=== PATIENT | female | born 2000 | race American Indian/Alaskan Native ===

== ENCOUNTER 2022-01-11 15:35 | Emergency (ER) | payer OTHER ==
[2022-01-11] MEDS ORDERED: levETIRAcetam 1000 MG/NS 0.75% 1,000 MG/100 ML BAG IV ONE (16:53)
[2022-01-11] MEDS ORDERED: BUTALB/ACETAMINOPHEN/CAFFEINE TAB PO ONE (17:05)
--- NOTE | 2022-01-11 17:07 | Emergency Department Report ---
HPI - General Time Seen by Provider: 01/11/22 16:36 - HPI HPI: Room 36 Patient is a 21-year-old female present with a chief complaint of possible seizure. According to bystanders at [facility] the patient stood up began shaking and fell to the ground injuring her head. EMS was called and transported patient to the ED. Patient states she remembers sitting down and drinking some sweet tea but then had to put her head down because she began to feel weird. Patient states feeling weird includes her respiratory rate decreasing and feeling dizzy and tired. Patient is amnestic to the event. Patient states she has had 2 other similar episodes in the past the first occurring in 2019. The patient states she was doing someone's hair and then asked them to get her some water because she was not feeling well and she lost consciousness but awakened prior to that person returning to the room. Patient states she had a second episode November 2020 when she again stood up and began feeling weird. The patient states after closing her door she awakened on the floor and this event was not witnessed. The patient now complains of left shoulder pain and a headache. The patient admits she has been incontinent of bladder for each of the above episodes ED Past Medical Hx - Past Medical History Additional medical history: ASD/VSD, right ventricle hypoplasia, tricuspid atresia all surgically repaired - Surgical History Hx Open Heart Surgery: Yes (Correction of ASD/VSD, right ventricle hypoplasia, tricuspid atresia) Hx Appendectomy: Yes - Family History Family history: no significant - Social History Smoking Status: Never Smoker Substance Use Type: Alcohol (Occasional), Marijuana - Medications Home Medications: Home Medications Medication Instructions Recorded Confirmed Last Taken Type Butalb/Acetamin/Caff 50-325-40 2 tab PO Q8HR PRN #10 tablet 01/11/22 Unknown Rx [Fioricet 50-325-40] levETIRAcetam [Keppra TAB] 500 mg PO BID #60 tablet 01/11/22 Unknown Rx ED Review of Systems ROS: Stated complaint: FALL/HEAD PAIN Other details as noted in HPI Constitutional: no symptoms reported Eyes: denies: eye pain ENT: denies: throat pain Respiratory: no symptoms reported Cardiovascular: denies: chest pain Endocrine: no symptoms reported Gastrointestinal: denies: abdominal pain Genitourinary: denies: dysuria Musculoskeletal: arthralgia. denies: back pain Neurological: headache Physical Exam - Physical Exam Vital Signs: Vital Signs 01/11/22 16:19 Pulse Rate 77 Respiratory 16 Rate Blood Pressure 111/74 [Right] O2 Sat by Pulse 98 Oximetry Physical Exam: GENERAL: The patient is well-developed well-nourished female lying on stretcher with head bandaged not appearing to be in acute distress. [] HEENT: Normocephalic. Extraocular motions are intact. Patient has moist mucous membranes. NECK: Supple. No axial tenderness to palpation CHEST/LUNGS: Clear to auscultation. There is no respiratory distress noted. HEART/CARDIOVASCULAR: Regular. There is no tachycardia. There is no gallop rub or murmur. ABDOMEN: Abdomen is soft, nontender. Patient has normal bowel sounds. There is no abdominal distention. SKIN: There is no rash. There is no edema. There is no diaphoresis. NEURO: The patient is awake, alert, and oriented. The patient is cooperative. The patient has no focal neurologic deficits. The patient has normal speech. Cranial nerves II through XII grossly intact. GCS 15 MUSCULOSKELETAL: There is no evidence of acute injury. ED Course Vital Signs 01/11/22 16:19 Pulse Rate 77 Respiratory 16 Rate Blood Pressure 111/74 [Right] O2 Sat by Pulse 98 Oximetry - Laceration /Wound Repair Left Head Wound Location: head Wound Length (cm): 3 Wound's Depth, Shape: linear Wound Explored: clean Irrigated w/ Saline (ccs): 400 Betadine Prep?: Yes Anesthesia: 1% Lidocaine Volume Anesthetic (ccs): 6 Number of Sutures: 4 ([place]) Sterile Dressing Applied?: Yes ED Medical Decision Making - Lab Data Result diagrams: 01/11/22 17:48 01/11/22 17:48 Laboratory Tests 01/11/22 01/11/22 01/11/22 17:48 17:48 17:48 WBC 7.7 RBC 4.79 Hgb 14.1 Hct 43.3 H MCV 91 MCH 30 MCHC 33 RDW 13.6 Plt Count 112 L Lymph % (Auto) 12.2 L [place] % (Auto) 5.0 Eos % (Auto) 0.0 Baso % (Auto) 0.6 Lymph # (Auto) 0.9 L [place] # (Auto) 0.4 Eos # (Auto) 0.0 Baso # (Auto) 0.0 Seg Neutrophils % 82.2 H Seg Neutrophils # 6.4 Sodium 141 Potassium 3.8 Chloride 105.1 Carbon Dioxide 23 Anion Gap 17 BUN 11 Creatinine 0.8 Estimated GFR > 60 BUN/Creatinine Ratio 14 Glucose 94 Calcium 9.5 Magnesium 1.70 HCG, Qual Negative - Radiology Data Radiology results: report reviewed (CT head, left shoulder x-ray), image reviewed (CT head, left shoulder x-ray) interpreted by me: Left shoulder x-ray-no acute fracture, no dislocation [address] [address] Cat Scan Report Signed Patient: DIDIER RODRÍGUEZ MR#: [id number] 9 : 2000 Acct:[id number] Age/Sex: 21 / F ADM Date: 01/11/22 Loc: ED Attending Dr: Ordering Physician: JOSE DONNELLY MD Date of Service: 01/11/22 Procedure(s): CT head/brain wo con Accession Number(s): [id number] cc: JOSE DONNELLY MD CT head/brain wo con INDICATION / CLINICAL INFORMATION: 21 years Female; Head injury after syncope/possible seizure. TECHNIQUE: Routine CT head without contrast. All CT scans at this location are performed using CT dose reduction for ALARA by means of automated exposure control. COMPARISON: None. FINDINGS: BRAIN / INTRACRANIAL CONTENTS: No acute hemorrhage, mass effect, midline shift, hydrocephalus, or acute, large territorial infarct. No signs of significant atrophy or chronic infarct. No significant white matter abnormality seen. CRANIOCERVICAL JUNCTION: No significant abnormality. ORBITS: No significant abnormality of visualized orbits. SINUSES / MASTOIDS: Visualized paranasal sinuses and mastoid air cells are essentially clear. ADDITIONAL FINDINGS: None. IMPRESSION: 1. No focal mass, hemorrhage, hydrocephalus, or acute, large territorial infarct. Signer Name: Eric Booth MD, III Signed: 01/11/2022 5:41 PM Workstation Name: [id number] Transcribed By: HR Dictated By: Eric Booth MD Electronically Authenticated By: Eric Booth MD Signed Date/Time: 01/11/22 174 DD/ 38 TD/TT: [address] [address] XRay Report Signed Patient: DIDIER RODRÍGUEZ MR#: [id number] 9 : 2000 Acct:[id number] Age/Sex: 21 / F ADM Date: 01/11/22 Loc: ED Attending Dr: Ordering Physician: JOSE DONNELLY MD Date of Service: 01/11/22 Procedure(s): XR shoulder 2+V LT Accession Number(s): [id number] cc: JOSE DONNELLY MD Fluoro Time In Minutes: LEFT SHOULDER 3 VIEWS INDICATION / CLINICAL INFORMATION: Pain in left shoulder after fall. COMPARISON: None available. FINDINGS: BONES and JOINT(S): No acute fracture or subluxation. No significant arthritis. SOFT TISSUES: No significant abnormality. ADDITIONAL FINDINGS: None. IMPRESSION: 1. No acute findings. Signer Name: Elmo Etienne MD Signed: 01/11/2022 7:51 PM Workstation Name: [id number] Transcribed By: [place] Dictated By: Elmo Etienne MD Electronically Authenticated By: Elmo Etienne MD Signed Date/Time: 01/11/221950 DD/ 49 TD/TT: - Differential Diagnosis Seizures Critical care attestation.: If time is entered above; I have spent that time in minutes in the direct care o f this critically ill patient, excluding procedure time. ED Disposition Clinical Impression: Seizure, Closed head injury, Contusion of left shoulder, Scalp laceration Disposition: 01 HOME / SELF CARE / HOMELESS Is pt being admited?: No Does the pt Need Aspirin: No Condition: Stable Additional Instructions: Your irma need to be removed in [address], operate heavy machinery or swim unattended until you are cleared by her neurologist. Return to the emergency department should you develop worsening symptoms, inability to tolerate food or liquids, high fever or any other concerns Prescriptions: Butalb/Acetamin/Caff 50-325-40 [Fioricet 50-325-40] 2 tab PO Q8HR PRN #10 tablet PRN Reason: Headache levETIRAcetam [Keppra TAB] 500 mg PO BID #60 tablet Referrals: [facility] [Provider Group] - [facility] Time of Disposition: 21:15
--- NOTE | 2022-01-11 17:45 | Cat Scan Report ---
CT head/brain wo con INDICATION / CLINICAL INFORMATION: 21 years Female; Head injury after syncope/possible seizure. TECHNIQUE: Routine CT head without contrast. All CT scans at this location are performed using CT dos e reduction for ALARA by means of automated exposure control. COMPARISON: None. FINDINGS: BRAIN / INTRACRANIAL CONTENTS: No acute hemorrhage, mass effect, midline shift, hydrocephalus, or acu te, large territorial infarct. No signs of significant atrophy or chronic infarct. No significant whi te matter abnormality seen. CRANIOCERVICAL JUNCTION: No significant abnormality. ORBITS: No significant abnormality of visualized orbits. SINUSES / MASTOIDS: Visualized paranasal sinuses and mastoid air cells are essentially clear. ADDITIONAL FINDINGS: None. IMPRESSION: 1. No focal mass, hemorrhage, hydrocephalus, or acute, large territorial infarct. Signer Name: Eric Booth MD, III Signed: 01/11/2022 5:41 PM Workstation Name: [id number]
[2022-01-11 18:37] LABS: Basophils % (Auto) 0.6 % (0.0-1.8); Hematocrit 43.3 % (30.3-42.9); Hemoglobin 14.1 gm/dl (10.1-14.3); Lymphocytes # (Auto) 0.9 K/mm3 (1.2-5.4); Lymphocytes % (Auto) 12.2 % (13.4-35.0); Mean Corpuscular HGB Conc 33 % (30-34); Mean Corpuscular Volume 91 fl (79-97); Monocytes # (Auto) 0.4 K/mm3 (0.0-0.8); Platelet Count 112 K/mm3 (140-440); Red Blood Count 4.79 M/mm3 (3.65-5.03); Red Cell Distribution Width 13.6 % (13.2-15.2)
[2022-01-11 18:49] LABS: BUN/Creatinine Ratio 14; Blood Urea Nitrogen 11 mg/dL (7-17); Calcium 9.5 mg/dL (8.4-10.2); Hemolysis Index 6
--- NOTE | 2022-01-11 19:55 | XRay Report ---
LEFT SHOULDER 3 VIEWS INDICATION / CLINICAL INFORMATION: Pain in left shoulder after fall. COMPARISON: None available. FINDINGS: BONES and JOINT(S): No acute fracture or subluxation. No significant arthritis. SOFT TISSUES: No significant abnormality. ADDITIONAL FINDINGS: None. IMPRESSION: 1. No acute findings. Signer Name: Elmo Etienne MD Signed: 01/11/2022 7:51 PM Workstation Name: [id number]
[2022-01-11] MEDS ORDERED: HYDROGEN PEROXIDE 118 ML SOLUTION TP ONE (20:06)
[2022-01-11] MEDS ORDERED: SODIUM CHLORIDE 0.9% IRR 500 ML BOTTLE IR ONE (20:48)
[2022-01-11] MEDS ORDERED: LIDOCAINE (1%) 10 MG/1 ML VIAL 20 ML MDV INFILTRATI ONE (20:48)
[2022-01-11] MEDS ORDERED: BACITRACIN ZINC OINT 28.4 GM TP SCH ×2 (21:30→22:00)
[2022-01-11] MEDS ORDERED: BACITRACIN ZINC OINT 28.4 GM TP STA (21:34)
[2022-01-11] MEDS ORDERED: NEOMY 3.5 MG/BACIT 400 UNITS/POLY B 5000 UNITS/GM OINT PACKET TP ONE (21:40)
[2022-01-11 21:52] VITALS: BP 116/68
== END 2022-01-11 21:52 | disposition home or self-care (01) ==
LOC: ED 15:35
DX: S01.01XA Laceration without foreign body of scalp, initial encounter (principal); S09.90XA Unspecified injury of head, initial encounter; S40.012A Contusion of left shoulder, initial encounter; R56.9 Unspecified convulsions; X58.XXXA Exposure to other specified factors, initial encounter; Y93.89 Activity, other specified; Y92.89 Other specified places as the place of occurrence of the external cause; Y99.8 Other external cause status
CPT/HCPCS: 36415; 70450; 80048; 83735; 84703; 85025; 99284; 99285